=== PATIENT | female | born 1955 ===

== ENCOUNTER 2017-07-14 07:32 | Emergency (ER) | payer MEDICAID, OTHER ==
[2017-07-14 07:39] VITALS: BMI 28.8
[2017-07-14] MEDS ORDERED: Piperacillin/Tazobact 3.375 GM in Sodium Chloride 0.9% 100 ML IVPB STA (08:07)
[2017-07-14] MEDS ORDERED: Piperacillin/Tazobact 3.375 gm Inj IVPB ONE (08:13)
[2017-07-14 08:37] LABS: VENOUS BLOOD GAS BASE EXCESS 3.5 mmol/L (0.0-2.0); VENOUS BLOOD GAS PCO2 47 mmHg (40-60)
[2017-07-14 08:39] LABS: BASO # 0.1 K/uL (0.0-0.2); BASO % 0.9 % (0.0-2.0); EOS # 0.1 K/uL (0.0-0.7); EOS % 0.8 % (0.0-4.0); HEMATOCRIT 37.3 % (34.0-47.0); LYMPH # 2.1 K/uL (1.0-4.3); LYMPH % 16.2 % (20.0-40.0); MEAN CELL VOLUME 85.5 fl (81.0-99.0); MEAN CORPUSCULAR HEMOGLOBIN 27.7 pg (27.0-31.0); MEAN CORPUSCULAR HGB CONC 32.3 g/dL (33.0-37.0); MEAN PLATELET VOLUME 7.9 fl (7.2-11.7); NEUT # 9.7 K/uL (1.8-7.0); NEUT % 74.1 % (50.0-75.0); NRBC % 0.1 % (0.0-0.0); RED CELL DISTRIBUTION WIDTH 14.9 % (11.5-14.5)
--- NOTE | 2017-07-14 08:39 | ED PDOC ---
HPI: Eye Injury/Pain Time Seen by Provider: 07/14/17 07:47 Chief Complaint (Nursing): Eye Problem Chief Complaint (Provider): Eye Problem History Per: Patient History/Exam Limitations: no limitations Onset/Duration Of Symptoms: Days (x10) Current Symptoms Are (Timing): Still Present Additional Complaint(s): Xiomy Lemos is a 62 year old female with a past medical history of diabetes and hypertension presenting to the ED for an evaluation of increasing jaw pain and left sided facial swelling associated with a dental abscess. The patient reports she has surgery scheduled for next for her dental abscess but the increasing pain prompted her ED visit today. She reports being on antibiotics, Azithromycin, and Ibuprofen for over 10 days. She denies any itching, difficulty breathing, fever, or chills. PMD: MD Domo Past Medical History Reviewed: Historical Data, Nursing Documentation, Vital Signs Vital Signs: Last Vital Signs Temp 98.6 F 07/14/17 07:37 Pulse 99 H 07/14/17 07:37 Resp 20 07/14/17 07:37 BP 163/88 H 07/14/17 07:37 Pulse Ox 98 07/14/17 07:41 - Medical History PMH: Anxiety, Depression, Diabetes, HTN, Hypercholesterolemia Denies: HIV, Chronic Kidney Disease - Surgical History Surgical History: Coronary Stent - Family History Family History: States: Unknown Family Hx - Social History Current smoker - smoking cessation education provided: No Alcohol: None Drugs: Denies - Immunization History Hx Tetanus Toxoid Vaccination: No Hx Influenza Vaccination: No Hx Pneumococcal Vaccination: No - Home Medications Home Medications: Ambulatory Orders Medication Instructions Recorded Citalopram Hydrobromide [Celexa] 20 mg PO DAILY 04/25/16 Glipizide [Glipizide Xl] 5 mg PO TID 04/25/16 Simvastatin [Zocor] 20 mg PO HS 04/25/16 Aripiprazole 5 mg PO BID 01/30/17 Aspirin [Ecotrin] 81 mg PO HS 01/30/17 Calcium Carbonate/Vitamin D3 1 tab PO BID 01/30/17 [Oyster Shell Calcium Tablet] Enalapril/Hydrochlorothiazide 1 tab PO DAILY 01/30/17 [Enalapril-Hctz 10-25 mg Tablet] Lisinopril [Zestril] 10 mg PO DAILY 01/30/17 Potassium Chloride [Klor-Con M20] 20 meq PO DAILY 01/30/17 Sitagliptin Phos/Metformin HCl 1 tab PO BID 01/30/17 [Janumet 50-1,000 mg Tablet] Vitamin B Complex [B Complete] 1 tab PO DAILY 01/30/17 hydroCHLOROthiazide [Hydrodiuril] 25 mg PO DAILY 01/30/17 traZODone [Desyrel] 100 mg PO DAILY 01/30/17 Amoxicillin/Clavulanate [Augmentin 1 tab PO BID #20 tab 07/14/17 875 MG-125 MG] - Allergies Allergies/Adverse Reactions: Allergies Allergy/AdvReac Type Severity Reaction Status Date / Time No Known Allergies Allergy Verified 07/14/17 07:41 Review of Systems ROS Statement: Except As Marked, All Systems Reviewed And Found Negative Constitutional: Positive for: Other (left sided facial swelling and left jaw pain). Negative for: Fever, Chills (and no itching) Respiratory: Negative for: Other (no difficulty breathing) Physical Exam - Reviewed Nursing Documentation Reviewed: Yes Vital Signs Reviewed: Yes - Physical Exam Appears: Positive for: Non-toxic, No Acute Distress Head Exam: Positive for: ATRAUMATIC, NORMOCEPHALIC Eye Exam: Positive for: EOMI, PERRL, Periorbital swelling (left periorbital edema; subcutaneous collection of liquid), Periorbital tenderness (tenderness to left cheek with erythema and induration to left infraorbital area ), Other ( no diplopia) ENT: Positive for: Normal ENT Inspection Neck: Positive for: Normal, Painless ROM, Supple Cardiovascular/Chest: Positive for: Regular Rate, Rhythm, Chest Non Tender. Negative for: Murmur Respiratory: Positive for: Normal Breath Sounds. Negative for: Respiratory Distress Gastrointestinal/Abdominal: Positive for: Normal Exam, Soft. Negative for: Tenderness Back: Positive for: Normal Inspection Extremity: Positive for: Normal ROM. Negative for: Deformity Lymphatic: Negative for: Adenopathy Neurologic/Psych: Positive for: Alert, Oriented (x3). Negative for: Motor/ Sensory Deficits - Laboratory Results Result Diagrams: 07/14/17 08:30 07/14/17 08:30 - ECG O2 Sat by Pulse Oximetry: 98 (RA) Pulse Ox Interpretation: Normal Medical Decision Making Medical Decision Making: Time: 07:47 Impression: Cellulitis expanding from dental abscess Plan: * VBG Shock Panel * BMP * CBC (with differential) * Erythrocyte Sedimentation Rate * Blood Culture * Zosyn 3.375 gm NS 0.9% 100 ml IVPB * Reevaluation Scribe Attestation: Documented by Molly Ruiz, acting as a scribe for Kaylyn Escamilla MD. Provider Scribe Attestation: All medical record entries made by the Scribe were at my direction and personally dictated by me. I have reviewed the chart and agree that the record accurately reflects my personal performance of the history, physical exam, medical decision making, and the department course for this patient. I have also personally directed, reviewed, and agree with the discharge instructions and disposition. 9.45a - patient feeling okay. pain is a bit better. labs reviewed. No evidence of acute illness. Patient agrees to trial of different oral antibiotic. Will discharge and followup Dr. Randolph. Disposition - Clinical Impression Clinical Impression: Cellulitis - Patient ED Disposition Is Patient to be Admitted: No Doctor Will See Patient In The: Office Counseled Patient/Family Regarding: Diagnosis, Need For Followup, Rx Given - Disposition Referrals: Naldo Oliveros MD [Family Provider] - Disposition: Routine/Home Disposition Time: 10:02 Condition: STABLE Prescriptions: Amoxicillin/Clavulanate [Augmentin 875 MG-125 MG] 1 tab PO BID #20 tab Instructions: Cellulitis (ED) Forms: [email or web address] (Yakut) - POA Present On Arrival: None
[2017-07-14 08:47] LABS: BLOOD UREA NITROGEN 12 mg/dl (7-17); CALCIUM 9.4 mg/dL (8.4-10.2); CARBON DIOXIDE 23 mmol/L (22-30); CHLORIDE 103 mmol/L (98-107); GFR AFRICAN-AMERICAN > 60; GLUCOSE,RANDOM 212 mg/dL (65-105); POTASSIUM 4.2 MMOL/L (3.6-5.0); SODIUM 137 mmol/l (132-148)
[2017-07-14 10:15] VITALS: BP 145/79; PULSE 75; RESP 16; TEMP 98; O2SAT 100
== END 2017-07-14 10:16 | disposition home or self-care (01) ==
LOC: H.ER 07:32
DX: L03.211 Cellulitis of face (principal)
CPT/HCPCS: 80048; 82803; 85025; 85651; 87040; 99285; J2543